=== PATIENT | female | born 1990 | race Caucasian/White ===

== ENCOUNTER 2021-09-29 13:16 | Emergency (ER) | payer MEDICAID, SELFPAY ==
--- NOTE | ~2021-09-29 | CT_ITS ---
EXAMINATION: CT abdomen pelvis wo con DATE: 09/29/2021 15:41 INDICATION: Right flank pain. TECHNIQUE: Computed tomography (CT) of the abdomen and pelvis was performed without intravenous contr ast. Automated exposure control and iterative reconstruction technique were employed. The dose-length product was 1073.97 mGy-cm. COMPARISON: None. FINDINGS: The visualized portions of the lung bases are clear without pneumonia or pleural effusion. The heart size is normal. No pericardial effusion. The liver, gallbladder, spleen, pancreas, adrenal glands, and right kidney are normal. The left kidney is in the pelvis, which is a normal variant. The re are no dilated loops of bowel. The appendix is normal. There are no pathologically enlarged lymph nodes. There is no free intraperitoneal fluid. The uterus is bicornuate. There is a 1.9 cm subcutaneo us mass in left flank, likely a sebaceous cyst. There is severe lumbar spondylosis. There is developm ental anterior and posterior fusion at L4-L5. IMPRESSION: 1. No urolithiasis. Reviewed, dictated and finalized at location A. IMPRESSION: 1. No urolithiasis.
[2021-09-29 13:25] VITALS: BP 126/78; PULSE 98; RESP 20; TEMP 35.9; O2SAT 99
[2021-09-29 13:43] LABS: Add Urine Microscopic? YES; Appearance Urine Cloudy (Clear); Bilirubin Urine 1+ (Negative); Blood Urine 2+ (Negative); Color Urine Yellow (Yellow); Glucose Urine UA 3+ (Negative); Ketones Urine 3+ (Negative); Leukocyte Esterase Ur 1+ (Negative); Nitrate Urine Negative (Negative); Protein Urine 1+ (Negative)
[2021-09-29 13:52] LABS: Basophils Absolute Auto 0.04 K/mm3 (0.00-0.10); Basophils Percent Auto 0.3 % (0.0-1.0); Eosinophils Absolute Auto 0.13 K/mm3 (0.02-0.50); Hemoglobin 13.8 g/dL (12.0-15.0); Immature Granulocyte Absolute 0.04 K/mm3 (0.00-0.00); Immature Granulocyte Percent A 0.3 % (0.0-0.0); Lymphocytes Absolute Auto 1.21 K/mm3 (1.10-4.50); Lymphocytes Percent Auto 9.6 % (18.0-42.0); Mean Corpuscular HGB Conc 34.5 g/dL (32.0-36.0); Mean Corpuscular Hemoglobin 31.2 pg (27.0-31.0); Mean Corpuscular Volume 90.3 fL (78.0-102.0); Mean Platelet Volume 9.4 fl (9.2-11.8); Monocytes Absolute Auto 0.57 K/mm3 (0.10-0.90); Monocytes Percent Auto 4.5 % (2.0-11.0); Neutrophils Absolute Auto 10.6 K/mm3 (1.7-7.2); Neutrophils Percent Auto 84.3 % (50.0-70.0); Platelet Count Result 359 K/mm3 (150-420); Red Blood Count 4.43 M/mm3 (4.20-5.40); White Blood Count 12.6 K/mm3 (4.8-10.8)
[2021-09-29 13:55] LABS: Bacteria Urine 1+ /hpf; Squamous Epithelial Cell Urine Few /hpf (Few); WBC Urine 21-30 /hpf (0-3)
[2021-09-29 14:08] LABS: Alanine Aminotransferase 20 U/L (14-59); Albumin Level 3.8 g/dL (3.4-5.0); Alkaline Phosphatase 104 U/L (46-116); Anion Gap 11 mmol/L (8-16); Aspartate Amino Transferase 15 U/L (15-37); Bilirubin,Total 0.7 mg/dL (0.00-1.00); Blood Urea Nitrogen 19 mg/dL (7-18); Calcium 8.9 mg/dL (8.5-10.1); Carbon Dioxide 25 mmol/L (21-32); Chloride 101 mmol/L (98-108); Estimated Glomerular Filt Rate > 60; Glucose 126 mg/dL (70-99); Lipase 106 U/L (73-393); Osmolality Calculated 288 mOsm/kg (285-295); Potassium 3.3 mmol/L (3.5-5.1); Sodium 137 mmol/L (136-145); Total Protein 7.7 g/dL (6.4-8.2)
[2021-09-29] MEDS: KETOROLAC (*BKC) 60 MG/2 ML VIAL IM (14:33)
[2021-09-29 15:17] LABS: Pregnancy On Board Control Positive; Urine Pregnancy Test Negative
--- NOTE | 2021-09-29 16:08 | ED.FEMALEGU ---
HPI - Female Genitourinary General Chief complaint: Urogenital-Female Stated complaint: Lower back twards R Side/Bladder pain Time Seen by Provider: 09/29/21 13:20 Source: patient and RN notes reviewed Mode of arrival: ambulatory Limitations: no limitations History of Present Illness MD elicited complaint: pelvic pain, back pain and flank pain Onset (ago): day(s) (1) Location of symptoms: RLQ and flank Severity: mild Female Urogenital Radiation: R Flank Severity scale (1-10): 6 Quality of pain: cramping, dull and aching Consistency: constant Vaginal discharge: none Vaginal bleeding: none Urinary symptoms: Flank Pain Exacerbating factors: none Relieving factors: none Associated symptoms: nausea and vomiting Treatment prior to arrival: none Patient : No Related Data Home Medications Medication Instructions Recorded Confirmed atorvastatin 20 mg tablet 20 mg PO DAILY 09/29/21 09/29/21 diclofenac sodium 75 mg 75 mg PO BID 09/29/21 09/29/21 tablet,delayed release duloxetine 60 mg capsule,delayed 60 mg PO DAILY 09/29/21 09/29/21 release empagliflozin 10 mg tablet 10 mg PO DAILY 09/29/21 09/29/21 (Jardiance) famotidine 20 mg tablet 20 mg PO DAILY 09/29/21 09/29/21 gabapentin 300 mg capsule 300 mg PO BID 09/29/21 09/29/21 loratadine 10 mg tablet 10 mg PO DAILY 09/29/21 09/29/21 metformin 500 mg tablet 500 mg PO BID 09/29/21 09/29/21 omeprazole 20 mg capsule,delayed 20 mg PO DAILY 09/29/21 09/29/21 release oxycodone-acetaminophen 5 mg-325 1 tablet PO Q4H PRN Pain 09/29/21 09/29/21 mg tablet (Percocet) ropinirole 2 mg tablet 2 mg PO BID 09/29/21 09/29/21 semaglutide 1 mg/dose (4 mg/3 mL) 1 mg subcut WEEKLY 09/29/21 09/29/21 subcutaneous pen injector (Ozempic) Allergies Allergy/AdvReac Type Severity Reaction Status Date / Time Penicillins Allergy Hives Verified 09/29/21 13:49 promethazine [From Phenergan] Allergy Hives Verified 09/29/21 13:49 pseudoephedrine All[facility] 09/29/21 13:49 [facility] Review of Systems Review of Systems: All systems reviewed & are unremarkable except as noted in HPI and below Constitutional: Constitutional: Reports no additional constitutional complaints Eyes: Eyes: Reports no additional eye complaints ENT: Reports system reviewed and no additional complaints, except as documented Cardiovascular: Cardiovascular: Reports no additional cardiovascular complaints Respiratory: Respiratory: Reports no additional respiratory complaints Gastrointestinal: Gastrointestinal: Reports no additional gastrointestinal complaints Genitourinary: Genitourinary: Reports no additional female genitourinary complaints and Reports flank pain Musculoskeletal: Musculoskeletal: Reports no additional musculoskeletal complaints Integumentary/Breasts: Skin/Breast: Reports system reviewed and no additional complaints, except as docu Neurologic: Reports system reviewed and no additional complaints, except as documented Psychiatric: Psychiatric: Reports no additional psychiatric complaints Endocrine: Endocrine: Reports no additional endocrine complaints Hematologic/Lymphatic: Hematologic/Lymphatic: Reports no additional hematologic/lymphatic complaints Allergic/Immunologic: Allergic/Immunologic: Reports no additional allergic/immunologic complaints PMFSH Past Medical History Medical History Urinary tract infection Exam Const: General: healthy appearing and no acute distress Nutritional Appearance: well nourished Orientation/consciousness: patient oriented x3 Limitations: no limitations HENMT: Head: normal to inspection Ears: external ears normal, TM's normal bilaterally and EAC's normal General nose exam: Normal external nose present and Normal nares present Face and sinus: normal facial exam and sinuses nontender Mouth: Yes Normal oral and palatal mucosa present and Yes moist mucous membranes Teeth
[2021-09-29 16:20] VITALS: BP 130/71; PULSE 84; RESP 16; TEMP 36.4; O2SAT 100
[2021-09-29] MEDS: POTASSIUM CHLORIDE 20 MEQ TABLET PO (16:27)
[2021-09-29] MEDS: cefTRIAXone 1 GM VIAL IM (16:28)
[2021-09-29] MEDS: LIDOCAINE HCL 1% LOCAL INJ 10 ML VIAL (16:28)
== END 2021-09-29 16:35 | disposition home or self-care (01) ==
PROVIDERS: Emergency Provider Emergency Medicine
DX: N39.0 Urinary tract infection, site not specified (principal)
CPT/HCPCS: 36415; 74176; 80053; 81001; 81025; 83690; 85025; 96372; 99284; A9270; J0696; J1885